=== PATIENT | female | born 1995 | race Caucasian/White ===

== ENCOUNTER 2017-07-10 19:49 | Day surgery (SDC) | payer OTHER ==
[2017-07-10 20:29] VITALS: BP 130/56; TEMP 99.5; BMI 56.6
--- NOTE | 2017-07-10 21:03 | PDOC.LDHP ---
Labor and Delivery H&P Chief complaint: decreased movement HPI: 22 y/o at 30w2d, patient of Dr. Resendiz at [facility] in [place], presents with decreased FM and fever. She describes a headache since yesterday and fever up to 102.6 at home. Denies VB, abd pain, LOF, UTI sx, back pain, N/V /d. ROS neg for HEENT, cv, pulm, gi, gu, neuro, psych, skin, musculoskeletal or constitutional sx other than mentioned above. OB History Details: 1 prior ELTCS at 36 weeks at [facility]. Baby at 7 months due to a "genetic disorder." Current complications: gestational diabetes (A2), other (Morbid obesity) Past Medical History: Hypothyroidism Morbid Obesity Bipolar d/o Current medications: pre-toni vitamins, other (Keppra, metformin (not taken), synthroid, prozac, Tums, Tylenol, meclazine) Previous surgical history: low tranverse CS Allergies/Adverse Reactions: Allergies Allergy/AdvReac Type Severity Reaction Status Date / Time Sulfa (Sulfonamide Allergy Verified 11/07/15 22:53 Antibiotics) Social history: none - Physical Exam Vital signs reviewed and normal: yes General: NAD, resting Heart: RRR Lungs: CTAB Abdomen: gravid (NTTP) Extremeties: no edema - OB Labs Additional Labs: Laboratory Tests 07/10/17 07/10/17 20:43 21:23 WBC 8.0 RBC 3.68 L Hgb 10.7 L Hct 31.4 L MCV 85.3 MCH 29.0 MCHC 34.0 RDW 13.9 Plt Count 279 MPV 6.0 L Neutrophils % 73.4 Lymphocytes % 19.8 L Monocytes % 5.8 Eosinophils % 0.2 Basophils % 0.9 Neutrophils # 5.8 Lymphocytes # 1.6 Monocytes # 0.5 Eosinophils # 0.0 Basophils # 0.1 POC Glucose 90 - Assessment 22 y/o at 30w2d with BPP of 8/8. Unable to obtain NST due to maternal body habitus. Afebrile here and asymptomatic other than a headache. No WBC count, no left shift. Received Tylenol in ambulance. - Plan -: D/c home with precautions. Advised to keep all appointments and call clinic if symptoms develop.
[2017-07-10] MEDS ORDERED: Sodium Chloride 0.9% 1,000 ML IV SCH (21:15)
[2017-07-10 21:29] LABS: #Basophils 0.1 thou/uL (0.0-0.2); #Lymphocytes 1.6 thou/uL (1.20-3.40); #Monocytes 0.5 thou/uL (0.11-0.59); #Neutrophils 5.8 thou/uL (1.40-6.50); %Basophils 0.9 % (0.0-1.0); %Eosinophils 0.2 % (0.0-10.0); %Lymphocytes 19.8 % (21.0-51.0); %Monocytes 5.8 % (0.0-10.0); %Neutrophils 73.4 % (42.0-75.0); Hemoglobin 10.7 g/dL (12.0-16.0); Mean Corpuscular Volume 85.3 fl (81.0-99.0); Platelet Count 279 thou/uL (130-400); RBC Distribution Width 13.9 % (11.5-14.5); Red Blood Cell (RBC) Count 3.68 mill/uL (4.20-5.40)
--- NOTE | 2017-07-10 21:58 | ULT ---
BIOPHYSICAL PROFILE: 07/10/2017 PROVIDED CLINICAL HISTORY: Decreased movement. FINDINGS: A single live intrauterine gestation is documented in vertex presentation, with a heart rate of 158 b eats per minute. The placenta is posteriorly located. MOVEMENT: 2/2 TONE: 2/2 BREATHING MOVEMENTS: 2/2 AMNIOTIC FLUID VOLUME: 2/2 TOTAL: 8/8 DOCUMENTED DIMITRY: 20.7 IMPRESSION: Normal biophysical profile. POS: JERAMIE
== END 2017-07-10 22:10 | disposition home or self-care (01) ==
LOC: L&D/OP 19:49
PROVIDERS: ATTEND Obstetrics & Gynecology
DX: O36.8130 Decreased fetal movements, third trimester, not applicable or unspecified (principal); O99.89 Other specified diseases and conditions complicating pregnancy, childbirth and the puerperium; R51 Headache; O99.283 Endocrine, nutritional and metabolic diseases complicating pregnancy, third trimester; E03.9 Hypothyroidism, unspecified; O99.343 Other mental disorders complicating pregnancy, third trimester; F31.9 Bipolar disorder, unspecified; O99.213 Obesity complicating pregnancy, third trimester; E66.01 Morbid (severe) obesity due to excess calories; Z68.43 Body mass index [BMI] 50.0-59.9, adult; Z88.2 Allergy status to sulfonamides; Z3A.30 30 weeks gestation of pregnancy; Z79.899 Other long term (current) drug therapy; Z98.891 History of uterine scar from previous surgery
CPT/HCPCS: 36415; 36416; 76819; 85025; 96360; 99283